=== PATIENT | male | born 1995 | race Caucasian/White ===

== ENCOUNTER 2017-08-18 02:30 | Emergency (ER) | payer OTHER ==
[2017-08-18] MEDS: morphine 4 MG/ML VIAL IV (03:39)
[2017-08-18] MEDS: SODIUM CHLORIDE 0.9% 1L BAG IV* (03:39)
[2017-08-18] MEDS: ONDANSETRON 4 MG INJ IV (03:39)
[2017-08-18 04:11] LABS: ADD MAN DIFF? NO
[2017-08-18 04:27] LABS: ADD UMIC YES; UR ASCORBIC ACID NEGATIVE (NEGATIVE); UR BACTERIA FEW /HPF (NONE SEEN); UR BILIRUBIN (Dip) NEGATIVE (NEGATIVE); UR BLOOD (Dip) 1+ mg/dL (NEGATIVE); UR CLARITY CLEAR (CLEAR); UR COLOR STRAW (YELLOW); UR GLUCOSE (Dip) NEGATIVE (NEGATIVE); UR KETONES (Dip) NEGATIVE (NEGATIVE); UR LEUKOCYTE ESTERASE (Dip) TRACE Leu/ul (NEGATIVE); UR NITRITE (Dip) NEGATIVE (NEGATIVE); UR RBC 0 /HPF (0-5); UR SPECIFIC GRAVITY (Dip) 1.003 (1.003-1.030); UR TOTAL PROTEIN (Dip) NEGATIVE (NEGATIVE); UR UROBILINOGEN (Dip) NEGATIVE (NEGATIVE); UR WBC 2 /HPF (0-5)
[2017-08-18 04:28] LABS: LACTIC ACID 0.9 mmol/L (0.5-2.0)
[2017-08-18 04:30] LABS: BASOPHIL # 0.1 10^3/ul (0.0-0.1); EOSINOPHILS # 0.2 10^3/ul (0.0-0.5); EOSINOPHILS % 3.1 % (0.0-7.0); HEMATOCRIT 42.1 % (42.0-52.0); HEMOGLOBIN 14.4 g/dl (14.0-18.0); LYMPHOCYTES # 2.7 10^3/ul (0.8-2.9); LYMPHOCYTES % 35.4 % (15.0-51.0); MEAN CORPUSCULAR HEMOGLOBIN 29.6 pg (29.0-33.0); MEAN CORPUSCULAR HGB CONC 34.2 g/dl (32.0-37.0); MEAN CORPUSCULAR VOLUME 86.4 fl (82.0-101.0); MEAN PLATELET VOLUME 11.6 fl (7.4-10.4); MONOCYTE # 0.6 10^3/ul (0.3-0.9); MONOCYTES % 7.5 % (0.0-11.0); NEUTROPHIL # 4.1 10^3/ul (1.6-7.5); NEUTROPHILS % 52.2 % (39.0-77.0); PLATELET COUNT 360 10^3/UL (140-415); RED BLOOD COUNT 4.87 10^6/ul (4.70-6.10); RED CELL DISTRIBUTION WIDTH 12.6 % (11.5-14.5)
[2017-08-18 04:30] LABS: WHITE BLOOD COUNT 7.8 10^3/ul (4.8-10.8)
[2017-08-18 04:52] LABS: ALANINE AMINOTRANSFERASE 42 IU/L (13-69); ALBUMIN 4.9 g/dl (3.3-4.9); ALBUMIN/GLOBULIN RATIO 1.36; ALKALINE PHOSPHATASE 106 IU/L (42-121); ANION GAP 17 (8-16); ASPARTATE AMINO TRANSFERASE 32 IU/L (15-46); BILIRUBIN,INDIRECT 0.3 mg/dl (0-1.1); BILIRUBIN,TOTAL 0.3 mg/dl (0.2-1.3); BLOOD UREA NITROGEN 12 mg/dl (7-20); CALCIUM 10.3 mg/dl (8.4-10.2); CARBON DIOXIDE 26 mmol/L (21-31); CHLORIDE 107 mmol/L (97-110); GLUCOSE 96 mg/dl (70-220); LIPASE 57 U/L (23-300); POTASSIUM 3.5 mmol/L (3.5-5.1); SODIUM 146 mmol/L (135-144); TOTAL PROTEIN 8.5 g/dl (6.1-8.1)
[2017-08-18] MEDS ORDERED: KETOROLAC 15 MG INJ (05:44)
[2017-08-18] MEDS: SOD CHLORIDE 0.9% 1,000 ML IV ×3 (06:45→10:49)
[2017-08-18] MEDS: KETOROLAC 15 MG INJ IV (07:22)
== END 2017-08-18 13:06 | disposition home or self-care (01) ==
LOC: E/R 02:30
DX: G82.50 Quadriplegia, unspecified (principal); R40.2252 Coma scale, best verbal response, oriented, at arrival to emergency department; S93.401A Sprain of unspecified ligament of right ankle, initial encounter; N30.00 Acute cystitis without hematuria; I10 Essential (primary) hypertension; G89.29 Other chronic pain; J45.909 Unspecified asthma, uncomplicated; F17.210 Nicotine dependence, cigarettes, uncomplicated; R40.2142 Coma scale, eyes open, spontaneous, at arrival to emergency department; R40.2362 Coma scale, best motor response, obeys commands, at arrival to emergency department; W22.8XXA Striking against or struck by other objects, initial encounter; Y92.9 Unspecified place or not applicable
CPT/HCPCS: 36415; 73610-RT; 80053; 81001; 83605; 83690; 85025; 87040; 87086; 96374; 96375; 99284-25